=== PATIENT | female | born 1975 | race Caucasian/White ===

== ENCOUNTER 2020-11-07 08:46 | Outpatient (REF) | payer SELFPAY ==
--- NOTE | 2020-11-07 09:02 | XR_ITS ---
EXAMINATION: XR AP STANDING VIEWS OF BOTH KNEES AND 2 VIEWS OF THE RIGHT KNEE CLINICAL INFORMATION: Pain. COMPARISON: MRI of 10/02/2020. TECHNIQUE: AP standing view of both knees. Lateral and sunrise views of the right knee. FINDINGS: AP standing views of both knees demonstrate maintenance of medial lateral joint space compartments. Bone islands are seen within the distal left femur and bilateral proximal tibias. No significant degenerative spurring is present. No destructive bony lesions. Views of the right knee do not demonstrate any evidence of acute fracture or dislocation. No right knee effusion. Right knee joint space is maintained. XR/XR knee standing BI IMPRESSION: No significant abnormality identified on AP standing views of both knees and lateral and sunrise views of the right knee.
--- NOTE | 2020-11-07 09:02 | XR_ITS ---
EXAMINATION: XR AP STANDING VIEWS OF BOTH KNEES AND 2 VIEWS OF THE RIGHT KNEE CLINICAL INFORMATION: Pain. COMPARISON: MRI of 10/02/2020. TECHNIQUE: AP standing view of both knees. Lateral and sunrise views of the right knee. FINDINGS: AP standing views of both knees demonstrate maintenance of medial lateral joint space compartments. Bone islands are seen within the distal left femur and bilateral proximal tibias. No significant degenerative spurring is present. No destructive bony lesions. Views of the right knee do not demonstrate any evidence of acute fracture or dislocation. No right knee effusion. Right knee joint space is maintained. XR/XR knee RT 2V IMPRESSION: No significant abnormality identified on AP standing views of both knees and lateral and sunrise views of the right knee.
== END 2020-11-07 08:47 | disposition home or self-care (01) ==
LOC: HO.HOSX 08:46
PROVIDERS: Visit Provider Orthopaedic Surgery
DX: S83.241A Other tear of medial meniscus, current injury, right knee, initial encounter (principal); M25.561 Pain in right knee
CPT/HCPCS: 73560; 73565

== ENCOUNTER 2020-12-04 06:07 | Day surgery (SDC) | payer OTHER, SELFPAY ==
[2020-11-26 20:05] VITALS: BMI 23.8
--- NOTE | 2020-12-03 08:40 | P.CONAN_ITS ---
Documented by User: Sharmaine Hong 12/03/20 08:41 HPI - Anesthesia Eval Consult details Narrative: 45yo F for Right Knee Arthroscopy [facility] Active Problems Active Problems: All Active Problems (Updated 11/26/20 @ 20:09 by Tess Mejía RN) Tear of medial meniscus of right knee (Acute) Past Medical History Medical History Anemia History of COVID-19 Tear of medial meniscus of right knee Family History Family History Mother No problems noted. Father No problems noted. Surgical History Surgical History Hx of cholecystectomy Social History Social History Alcohol intake: current Smoking Status: Never smoker Use of substances other than those prescribed or required for medical reasons: No Have you been hit, kicked, punched, or otherwise hurt by someone within the past year? If so, by whom?: No Advance Directives: No Advance Directives Information Provided: No Advance Directives on File: No Current occupational status: employed Current occupation: medical sales representative, right-handed Meds Allergies Allergy/AdvReac Type Severity Reaction Status Date / Time No Known Allergies Allergy Verified 11/26/20 20:05 Home Medications Medication Instructions Recorded Confirmed Type cholecalciferol (vitamin D3) 125 mcg PO DAILY 11/26/20 11/26/20 History [Vitamin D3] zinc 100 mg PO DAILY 11/26/20 11/26/20 History Exam Exam Date and Time: December 03, 2020 0840 Height,Weight and Vital Signs: Height 5 ft 6 in Weight 67.132 kg Assessment and Plan Assessment Anesthesia Assessment: Chart Reviewed Documented by User: Vitor Mckenzie MD 12/04/20 08:02 [facility] Past Medical History Medical History Anemia History of COVID-19 Tear of medial meniscus of right knee Family History Family History Mother No problems noted. Father No problems noted. Surgical History Surgical History Hx of cholecystectomy Social History Social History Alcohol intake: current Smoking Status: Never smoker Use of substances other than those prescribed or required for medical reasons: No Have you been hit, kicked, punched, or otherwise hurt by someone within the past year? If so, by whom?: No Advance Directives: No Advance Directives Information Provided: No Advance Directives on File: No Current occupational status: employed Current occupation: medical sales representative, right-handed Meds Allergies Allergy/AdvReac Type Severity Reaction Status Date / Time No Known Allergies Allergy Verified 11/26/20 20:05 Home Medications Medication Instructions Recorded Confirmed Type cholecalciferol (vitamin D3) 125 mcg PO DAILY 11/26/20 11/26/20 History [Vitamin D3] zinc 100 mg PO DAILY 11/26/20 11/26/20 History Exam Airway Mallampati Class: II TM Dist: >3cm Neck ROM: Full Loose/Missing/Broken Teeth: No Heart: RRR Lungs: NL Assessment and Plan Assessment Anesthesia Assessment: Anesthesia Plan Discussed and Chart Reviewed Final Anesthetic Review NPO: Yes ASA Class: II Final Preanesthetic Review: No Changes in Pt Med Stat, Meds/Allgs Chart Reviewed, Consent Obtained/Reviewed and Anes Risks/Benef Reviewed Patient Risk: Low Procedure Risk: Low Anesthetic Plan Anesthetic Plan: GA Disposition: Standard PACU
[2020-12-04 06:20] VITALS: BP 103/42; PULSE 64; RESP 18; TEMP 36.7; O2SAT 99
[2020-12-04 06:35] LABS: UPreg QC Valid YES; Urine Pregnancy NEGATIVE (NEGATIVE)
[2020-12-04] MEDS: Lactated Ringers 1,000 ML 100 ML IVCONT (06:38)
--- NOTE | 2020-12-04 07:26 | MHC.SHP ---
Pre-Procedural Eval Section A The patient is an INPATIENT: No Changes since office visit: Yes Patient answered all questions; No Cold of Flu in the past 2 weeks, No New Medical Problems and No Changes in Medication The History & Physical has been completed within 30 days and I have reviewed it.: Yes Section B Chief Complaint: Medial Meniscus Tear Allergies: Allergies Allergy/AdvReac Type Severity Reaction Status Date / Time No Known Allergies Allergy Verified 11/26/20 20:05 Plan I have reviewed the history and physical and performed a pertinent physical examination on my patient. No changes have occurred unless specified.
[2020-12-04 08:16] VITALS: BP 119/66; PULSE 82; RESP 16; TEMP 36.9; O2SAT 97
[2020-12-04 08:21] VITALS: BP 107/57; PULSE 78; RESP 16; O2SAT 99
[2020-12-04 08:26] VITALS: BP 108/62; PULSE 73; RESP 18; O2SAT 98
[2020-12-04 08:31] VITALS: BP 105/61; PULSE 74; RESP 18; O2SAT 96
[2020-12-04 08:46] VITALS: BP 98/55; PULSE 98; RESP 18; O2SAT 98
--- NOTE | 2020-12-04 09:09 | HO.POSTANES ---
Post Anesthesia Evaluation Post Anesthesia Evaluation Vital Signs: Vital Signs Temp Pulse Resp BP Pulse Ox 12/04/20 08:46 98 18 98/55 L 98 12/04/20 08:31 74 18 105/61 96 12/04/20 08:26 73 18 108/62 98 12/04/20 08:21 78 16 107/57 L 99 12/04/20 08:16 98.4 F 82 16 119/66 97 12/04/20 06:20 98.1 F 64 18 103/42 L 99 Anesthesia: General LMA Mental Status: Awake Nausea/Vomiting: None Hydration: Adequate Anesthesia-Related Issues: No Anes. Related Issues
--- NOTE | 2020-12-06 12:34 | PM.OP ---
Brief Operative Note Date of Service: 12/04/20 Pre-op diagnosis: right knee medial meniscus tear Post-op diagnosis: same Procedure: right knee arhtroscopy Implants: none Surgeon: Angel Minor MD Anesthesia: GETA and local Estimated blood loss (mL): 0 Tourniquet time (min): 20 IV fluids (mL): 500 Pathology: none sent Condition: stable Disposition: PACU
--- NOTE | 2020-12-06 17:22 | OP_ITS ---
SURGEON: Angel Minor MD INDICATIONS: 45-year-old woman with symptomatic medial meniscus tear, consented to undergo partial medial meniscectomy. PREOPERATIVE DIAGNOSIS: Right knee medial meniscus tear. POSTOPERATIVE DIAGNOSIS: Right knee medial meniscus tear. PROCEDURE PERFORMED: Right knee arthroscopy with partial medial meniscectomy. ESTIMATED BLOOD LOSS: None. COMPLICATIONS: None. ANESTHESIA: General and local. ASSISTANTS: None. SPECIMENS: FLUIDS: 500. PROCEDURE IN DETAIL: The patient was brought to the operating room, placed supine on the operative table and prepped and draped in standard sterile fashion. Time-out was called to identify proper site, proper procedure, proper surgeon. IV antibiotics per weight was administered. I began by insufflating tourniquet to 300 mmHg. I then made an anterolateral stab incision with a 15 blade and placed my blunt trocar atraumatically into the patellofemoral joint. I insufflated the knee and placed my 30-degree arthroscope. The patellofemoral joint was notable for some grade 1 changes of the patella. Trochlea was clean. Gutters were clean. I descended into the medial compartment, where I made my medial portal under direct visualization. She had a posterior body and horn meniscal tear. Root was intact. Meniscus was stable on probing. I used a combination of biter and shaver to debride the peripheral tear down to stable edges and there was some grade 2/3 changes of the lateral portion of the medial femoral condyle at the anterior aspect. I performed a chondroplasty with a shaver. ACL was intact. Lateral compartment was pristine. I removed all instrumentation once I took my final pictures and closed with skin glue. The patient was placed in sterile dressing, extubated, and brought to recovery room in stable condition. There were no known complications. Angel Minor MD NE/MODL / [id number]
== END 2020-12-04 09:32 | disposition home or self-care (01) ==
PROVIDERS: Nurse Practitioner; Visit Provider Orthopaedic Surgery
PROC: (CPT 29870; principal; 2020-12-04 07:30)
DX: S83.241A Other tear of medial meniscus, current injury, right knee, initial encounter (principal); X58.XXXA Exposure to other specified factors, initial encounter; Y93.9 Activity, unspecified; Y92.9 Unspecified place or not applicable; Y99.9 Unspecified external cause status
CPT/HCPCS: 29881; 81025; J0171; J0690; J1100; J2250; J2405; J3010

== ENCOUNTER → 2020-12-19 10:01 | Outpatient (BNVA) | payer OTHER, SELFPAY | PROVIDERS: Visit Provider Physician Assistant ==

== ENCOUNTER → 2021-01-16 09:49 | Outpatient (BNVA) | payer OTHER, SELFPAY | PROVIDERS: PCP Internal Medicine; Visit Provider Orthopaedic Surgery ==

== ENCOUNTER 2021-02-18 09:00 | Outpatient (RCR) | payer OTHER, SELFPAY ==
--- NOTE | 2021-01-01 13:52 | MHC.PT.EP ---
[facility] [place] Office [place] Office [place] Office [address] Roland Arenas [address] [phone] F: [phone] F: [phone] F: [phone] F: [phone] Physical Therapy Plan of Care Date of Evaluation: 01/01/21 Date of Surgery: 12/04/20 Diagnosis: Tear of medial meniscus, R knee Assessment: Patient is a 45 year old R handed female who presents with s/s consistent with R meniscectomy. 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 Patient past medical history is otherwise unremarkable. She would like to get back to being active and walking/hiking often. Current impairments include pain, ROM, strength, activity tolerance and functional mobility. Functional limitations include decreased ability to walk, stand, transfer, negotiate stairs, squat, hike, and perform weight bearing activities.. Patient is motivated with good rehab potential. Skilled PT will address impairments and functional limitations in order to achieve goals. Frequency and Duration: The patient will be seen 2x/week for 5 weeks Short Term Goals: I With HEP - 2 weeks knee AROM 0-140 - 3 weeks no warmth/evidence of swelling 3 weeks Half-Way Goals: knee and hip strength 4+/5 - 5 weeks back to PLOF, able to hike 20 minutes - 5 weeks normal gastroc and HS flexibility - 5 weeks Treatment Plan: Modalities to reduce pain, spasms and effusion. Manual therapy to restore motion and function. Therapeutic exercise to improve strength and flexibility. Neuromuscular re-education for posture and balance. Therapeutic activities to return to functional activities of daily living. Electronically signed by: Bruno Vickers, PT Please sign and return to therapist. Thank you for your referral.
--- NOTE | 2021-02-28 10:01 | MHC.PT.DC ---
[facility] [place] Office [place] Office [place] Office [address] Roland Arenas [address] [phone] F: [phone] F: [phone] F: [phone] F: [phone] Physical Therapy Discharge Report Diagnosis: Tear of medial meniscus, R knee Date of Surgery: 12/04/20 Date of Evaluation: 01/01/21 Date of Discharge: 02/20/21 Treatments to Date: 8 Cancellations to Date: 0 No Shows to Date: 0 Discharge Status: Achieved Goals Improved Function Independent with HEP Discharge Summary: Pt progressed well with increasing hip strength, gait, swelling and normal ROM and is painfree. Pt has returned back to all activities Electronically signed by: Bruno Vickers, PT Please sign and return to therapist. Thank you for your referral.
== END 2021-02-28 10:02 | disposition home or self-care (01) ==
LOC: HO.PTCHIC 09:00
PROVIDERS: PCP Internal Medicine; Visit Provider Physician Assistant
DX: S83.241A Other tear of medial meniscus, current injury, right knee, initial encounter (principal)
CPT/HCPCS: 97110; 97112; 97140; 97162; 97530

== ENCOUNTER → 2021-07-14 08:10 | Outpatient (BNVA) | payer OTHER, SELFPAY | PROVIDERS: PCP Internal Medicine; Visit Provider Orthopaedic Surgery ==

== ENCOUNTER 2024-08-14 08:44 | Outpatient (REF) | payer BC, SELFPAY ==
--- NOTE | ~2024-08-14 | XR_ITS ---
EXAMINATION: Bilateral knee series CLINICAL INFORMATION: Pain in the left knee COMPARISON: X-rays of the knees October 2020 TECHNIQUE: AP upright views of both knees. Additional patella and lateral view of the left knee FINDINGS: Left knee: The bones joints and soft tissues are normal without arthrosis. No effusion. Right knee Limited AP upright: The medial lateral compartments are normal. Cannot evaluate patellofemoral femoral compartment on AP projection. Surrounding bone and soft tissues unremarkable. XR/XR knee LT 3V IMPRESSION: LEFT KNEE: Normal. RIGHT KNEE: Limited AP upright: Normal. Electronically signed by: Dmitry Erickson MD 08/18/2024 09:29 PM EDT
--- NOTE | ~2024-08-14 | XR_ITS ---
EXAMINATION: Bilateral knee series CLINICAL INFORMATION: Pain in the left knee COMPARISON: X-rays of the knees October 2020 TECHNIQUE: AP upright views of both knees. Additional patella and lateral view of the left knee FINDINGS: Left knee: The bones joints and soft tissues are normal without arthrosis. No effusion. Right knee Limited AP upright: The medial lateral compartments are normal. Cannot evaluate patellofemoral femoral compartment on AP projection. Surrounding bone and soft tissues unremarkable. XR/XR knee RT 1V IMPRESSION: LEFT KNEE: Normal. RIGHT KNEE: Limited AP upright: Normal. Electronically signed by: Dmitry Erickson MD 08/18/2024 09:29 PM EDT
== END 2024-08-14 08:45 | disposition home or self-care (01) ==
LOC: HO.HOSX 08:44
PROVIDERS: Visit Provider Orthopaedic Surgery
DX: M25.562 Pain in left knee (principal)
CPT/HCPCS: 73560; 73562

== ENCOUNTER 2024-08-14 08:58 | Outpatient (AMB) | payer BC, SELFPAY ==
--- NOTE | 2024-08-14 08:59 | A.OFFVIS_ITS ---
Vital Signs 08/14/24 09:12 Height 5 ft 7 in Weight 116 lb BMI 18.2 Intake Visit Reasons: New Prob- LT knee pain Intake Note: Elda is a 49 year old female who presents today for a new problem visit with complaints of Left Knee Pain. Hx of RT Knee 12/04/20 Patient reports that she has had pain in the left knee. She explains that her pain is only felt when going down an incline. She takes Ibuprofen for the pain when she feels it but, it does not offer much relief. Denies numbness and tingling. She wears a brace which does feel supportive but does not help her pain . Allergies No Known Allergies Allergy (Verified 08/14/24 09:08) HPI HPI New Prob- LT knee pain: Details: Elda is a 49 year old female who presents today for a new problem visit with complaints of Left Knee Pain. Hx of RT Knee 12/04/20 Patient reports that she has had pain in the left knee. She explains that her pain is only felt when going down an incline. She takes Ibuprofen for the pain when she feels it but, it does not offer much relief. Denies numbness and tingling. She wears a brace which does feel supportive but does not help her pain . [facility] Medical History (Updated 08/14/24 @ 11:01 by Angel Minor MD) History of COVID-19 Anemia Tear of medial meniscus of right knee Surgical History (Updated 08/14/24 @ 09:12 by Julieta Cisneros CMA) H/O right knee surgery Hx of cholecystectomy Family History Mother No problems noted. Father No problems noted. Social History Alcohol intake: current Current occupational status: employed Current occupation: medical social worker, right-handed Physical Exam Vital Signs: BMI result Body Mass Index 18.2 Extrem Other: Full range of motion with no joint pain and negative Gwyn's. The only positive finding is pain with patellofemoral grind. Results Reviewed Results Reviewed: I personally reviewed relevant radiographs. Unremarkable radiographs left knee Assessment & Plan Assessment & Plan (1) Patellofemoral joint pain: Code(s): M25.569 - Pain in unspecified knee Category: Medical Plan: This is a 49-year-old active woman with left knee patellofemoral pain. She has pain when she is descending hills after long hikes. Her exam is benign and her signs and symptoms are most consistent with patellofemoral pain/mild patellofemoral OA. I do think she would benefit from core and hip strengthening and a course of physical therapy. I discussed this with her and she agrees. She will see me as needed. Orders: Orders XR knee LT 3V Today M25.562 - Pain in left knee Coding Level of Care Code Est Pt Level 3 (03089) Diagnoses Patellofemoral joint pain M25.569
[2024-08-14 09:12] VITALS: BMI 18.2
== END 2024-08-14 09:38 | disposition home or self-care (01) ==
PROVIDERS: PCP Internal Medicine; Visit Provider Orthopaedic Surgery
DX: M25.562 Pain in left knee (principal)
CPT/HCPCS: 99213

== ENCOUNTER 2024-09-26 08:00 | Outpatient (RCR) | payer BC, SELFPAY ==
--- NOTE | 2024-08-29 09:00 | MHC.PT.EP ---
[facility] [place] Office [place] Office [place] Office [address] [phone] F: [phone] F: [phone] F: [phone] F: [phone] Physical Therapy Plan of Care Date of Evaluation: 08/29/24 Date of Surgery: Diagnosis: L patellofemoral joint pain Assessment: Patient is a 49 year old R handed female who presents with s/s consistent with L patellofemoral pain. 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 Patient past medical history includes R knee pain/meniscal injury. Current impairments include pain, patellar tracking, strength, activity tolerance and functional mobility. Functional limitations include decreased ability to jog, negotiate stairs, squat, hike and ski. Patient is motivated with good rehab potential. Skilled PT will address impairments and functional limitations in order to achieve goals. Frequency and Duration: The patient will be seen 2x/week for 5 weeks Short Term Goals: I with HEP - 2 weeks TTP absent - 3 weeks normal patellar tracking in [place] - 3 weeks Alf Goals: Viviana quad flex - 5 weeks Strength 4+/5 grossly - 5 weeks LEFS 78/80 - 5 weeks Pain free running/hiking/skiing - 5 weeks Treatment Plan: Modalities to reduce pain, spasms and effusion. Manual therapy to restore motion and function. Therapeutic exercise to improve strength and flexibility. Neuromuscular re-education for posture and balance. Therapeutic activities to return to functional activities of daily living. Electronically signed by: Bruno Vickers, PT Please sign and return to therapist. Thank you for your referral.
--- NOTE | 2025-01-12 08:59 | MHC.PT.DC ---
[facility] [place] Office [place] Office [place] Office [address] Roland Arenas [address] [phone] F: [phone] F: [phone] F: [phone] F: [phone] Physical Therapy Discharge Report Diagnosis: L patellofemoral joint pain Date of Surgery: Date of Evaluation: 08/29/24 Date of Discharge: 10/05/24 Treatments to Date: 3 Cancellations to Date: No Shows to Date: Discharge Status: Improved Function Independent with HEP Patient Elected to Stop Discharge Summary: 09/25/24: pt progressing still. less pain with above program and with hiking. using tape independently with good results. 09/12/24: pt progressing well. reduced discomfort today. continue to progress as tolerated. 09/05/24: pt only with shuttle today. continue to progress. add taping if necessary pre shuttle [place]. Patient is a 49 year old R handed female who presents with s/s consistent with L patellofemoral pain. 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 Patient past medical history includes R knee pain/meniscal injury. Current impairments include pain, patellar tracking, strength, activity tolerance and functional mobility. Functional limitations include decreased ability to jog, negotiate stairs, squat, hike and ski. Patient is motivated with good rehab potential. Skilled PT will address impairments and functional limitations in order to achieve goals. Electronically signed by: Bruno Vickers, PT Please sign and return to therapist. Thank you for your referral.
== END 2025-01-12 09:00 | disposition home or self-care (01) ==
LOC: HO.PTCHIC 08:00
PROVIDERS: PCP Internal Medicine; Visit Provider Orthopaedic Surgery
DX: M25.562 Pain in left knee (principal)
CPT/HCPCS: 97110; 97140; 97161